=== PATIENT | male | born 1980 | race Caucasian/White ===

== ENCOUNTER 2025-06-17 23:04 | Emergency (ER) | payer MEDICAID ==
[~2025-06-17] VITALS: Ht 182.9 cm; Wt 104.0 kg
[2025-06-17 23:10] VITALS: O2SAT 99
[2025-06-17 23:47] LABS: BASOPHILS % 0.7 % (0.0-2.0); EOSINOPHILS % 0.2 % (0.0-5.0); HEMATOCRIT. 41.9 % (42.0-52.0); HEMOGLOBIN. 14.0 g/dL (14.0-18.0); LYMPHOCYTES % 33.0 % (20.0-50.0); MEAN PLATELET VOLUME 11.0 fl (7.4-10.4); MONOCYTES % 5.0 % (2.0-8.0); NEUTROPHILS % 61.1 % (40.0-76.0); PLATELET 162 x1000/uL (130-400); RED BLOOD CELL COUNT 4.63 mill/uL (4.7-6.1); RED CELL DISTRIBUTION WIDTH 14.2 % (11.6-14.6)
[2025-06-17 23:48] VITALS: TEMP 37
[2025-06-18 00:08] LABS: CREATININE 1.1 mg/dL (0.6-1.3); UREA NITROGEN BLOOD 10 mg/dL (9-23)
[2025-06-18] MEDS ORDERED: METF-416 MT (01:17)
[2025-06-18 02:00] VITALS: BP 146/90; PULSE 95; RESP 16; O2SAT 96
== END 2025-06-18 02:19 ==
LOC: ER 23:04
DX: R53.1 Weakness (principal); E11.65 Type 2 diabetes mellitus with hyperglycemia; I10 Essential (primary) hypertension; Z02.89 Encounter for other administrative examinations; Z65.3 Problems related to other legal circumstances; Z79.84 Long term (current) use of oral hypoglycemic drugs
CPT/HCPCS: 36415; 80048; 85025; 93005; 99284